=== PATIENT | male | born 1945 | race Caucasian/White ===

== ENCOUNTER 2022-01-12 09:00 | Emergency (ER) | payer OTHER, MEDICARE ==
[~2022-01-12 09:00] MED LIST: KEFLEX250 MG PO
[2022-01-12] MEDS ORDERED: NORCO 5-325 TA1 EACH PO (12:24)
== END 2022-01-12 12:27 | disposition home or self-care (01) ==
LOC: FER 09:00
DX: S16.1XXA Strain of muscle, fascia and tendon at neck level, initial encounter (principal); S39.012A Strain of muscle, fascia and tendon of lower back, initial encounter; I10 Essential (primary) hypertension; V63.5XXA Driver of heavy transport vehicle injured in collision with car, pick-up truck or van in traffic accident, initial encounter
CPT/HCPCS: 72040; 72100; 96372; J1030; J1885

== ENCOUNTER 2022-02-17 19:01 | Emergency (ER) | payer MEDICARE, OTHER ==
[~2022-02-17 19:01] MED LIST changes: +NORCO 5-325 TA1 EACH PO
[2022-02-17 19:38] LABS: BASOPHIL 0.5 % (0-2); EOSINOPHIL 1.6 % (0-7); HCT 37.6 % (42.0-52.0); LYMPHOCYTE 16.4 % (15-48); MCH 33.9 pg (25.0-31.0); MCHC 34.6 g/dL (32.0-36.0); MCV 97.9 fL (78.0-100.0); MONOCYTE 7.1 % (0-12); MPV 9.5 fL (6.0-9.5); NEUTROPHIL 74.1 % (41-80); NRBC 0; PLT 203 K/uL (150-400); RBC 3.84 M/uL (4.70-6.00); RDW 13.3 % (11.5-14.0); WBC 7.4 K/uL (4.0-10.5)
[2022-02-17 19:59] LABS: ALBUMIN 3.5 g/dL (3.4-5.0); BILIRUBIN - TOTAL 0.5 mg/dL (0.2-1.0); BUN/CREAT RATIO (CALC) 23.2 RATIO; CREATININE 0.95 mg/dL (0.67-1.17); GLOBULIN (CALCULATION) 3.6 g/dL; POTASSIUM 4.1 mmol/L (3.5-5.1); TOTAL PROTEIN 7.1 g/dL (6.4-8.2)
[2022-02-17 20:15] LABS: CORONAVIRUS 2019 SARS-COV-2 NEGATIVE (NEGATIVE); INFLUENZA A NAA NEGATIVE (NEGATIVE)
== END 2022-02-17 21:53 | disposition home or self-care (01) ==
LOC: FER 19:01
PROVIDERS: Emergency Medicine
DX: R07.89 Other chest pain (principal); R05.9 Cough, unspecified; I10 Essential (primary) hypertension; E11.9 Type 2 diabetes mellitus without complications; Z88.6 Allergy status to analgesic agent; Z20.822 Contact with and (suspected) exposure to COVID-19
CPT/HCPCS: 36415; 71045; 80053; 83880; 84484; 85025; 93005; U0002